=== PATIENT | female | born 1980 | race African-American/Black ===

== ENCOUNTER 2020-12-17 17:23 | Emergency (ER) | payer OTHER ==
[~2020-12-17] VITALS: Ht 167.6 cm; Wt 88.0 kg
== END 2020-12-17 22:42 | disposition home or self-care (01) ==
LOC: ED 17:23
DX: S16.1XXA Strain of muscle, fascia and tendon at neck level, initial encounter (principal); S39.012A Strain of muscle, fascia and tendon of lower back, initial encounter; V43.52XA Car driver injured in collision with other type car in traffic accident, initial encounter; F17.200 Nicotine dependence, unspecified, uncomplicated; Z88.8 Allergy status to other drugs, medicaments and biological substances; Z88.5 Allergy status to narcotic agent
CPT/HCPCS: 72040; 72100; 73030; 99284-25; A9270